=== PATIENT | male | born 1945 | race Caucasian/White ===

== ENCOUNTER → 2016-04-14 08:51 | Outpatient (CLI) | payer MEDICARE, OTHER ==
[2013-10-26 12:05] VITALS: BMI 26.6
[~2016-04-14 08:51] MED LIST: ASPIRIN325 MG PO; BENICAR HCT 40-1 TA1 PO; BUDEPRION XL300 MG; LIPITOR40 MG PO; LOPRESSOR25 MG PO; MULTI-DAY VITAM1 TAB PO; PLAVIX75 MG PO; POTASSIUM99 M1 PO; PREDNISONE50 MG PO; PRILOSEC20 MG PO; VITAMIN B COMPL1 TA1 PO
== END | disposition home or self-care (01) ==
LOC: D.CT 08:51
DX: M54.5 Low back pain (principal)

== ENCOUNTER → 2016-05-21 15:05 | Outpatient (CLI) | payer MEDICARE, OTHER ==
[2013-10-26 12:05] VITALS: BMI 26.6
== END | disposition home or self-care (01) ==
LOC: D.MRI 15:05
DX: M51.26 Other intervertebral disc displacement, lumbar region (principal); M80.88XA Other osteoporosis with current pathological fracture, vertebra(e), initial encounter for fracture

== ENCOUNTER → 2016-07-13 14:43 | Outpatient (CLI) | payer MEDICARE, OTHER ==
[2013-10-26 12:05] VITALS: BMI 26.6
== END | disposition home or self-care (01) ==
LOC: D.MRI 14:43
DX: M54.12 Radiculopathy, cervical region (principal)

== ENCOUNTER → 2016-08-05 14:11 | Outpatient (CLI) | payer MEDICARE, OTHER ==
[2013-10-26 12:05] VITALS: BMI 26.6
== END | disposition home or self-care (01) ==
LOC: D.US 14:11
DX: I70.212 Atherosclerosis of native arteries of extremities with intermittent claudication, left leg (principal)

== ENCOUNTER 2016-08-18 06:53 | Outpatient (CLI) | payer MEDICARE, OTHER ==
[~2016-08-18] VITALS: Ht 188 cm; Wt 79.5 kg
--- NOTE | ~2016-08-18 | HEMODYNAMI ---
PATIENT:RIKKI DAÍZ MEDICAL RECORD: [id number] : 43 LOCATION:[facility] ADMISSION DATE: 08/18/16 Generatedon:08/18/201611:54 Patient name: RIKKI DÍAZ Patient #: [id number] SSN: : 1945 Date of study: 08/18/2016 Page: Of Hemodynamic Procedure Report Patient Data Patient Demographics Procedure consent was obtained First Name: RIKKI Gender: Male Last Name: ARJUN : 1945 Middle Initial: ETHEL Age: 70 year(s) Patient #: [id number] Race: Unknown Additional ID: [id number] Contact details [address]: [address] [place] [address] State: [place] City: [place] Zip code: [address] Admission Admission Data Admission Date: 08/18/2016 Admission Time: 6:53 Procedure Procedure Types Cath Procedure Peripheral Cath Diagnostic Procedure Miscellaneous Procedure Description Procedure Date Procedure Date: 08/18/2016 Procedure Start Time: 10:25 Procedure Staff Name Function Gregory Kelly MD Performing Physician Maggie Wylie RT Scrub Lesly Serrato RN Nurse Seth Salcedo RT Monitor Procedure Data Cath Procedure Fluoroscopy Diagnostic fluoroscopy Total fluoroscopy Time: time: 17.9 min 17.9 min Diagnostic fluoroscopy Total fluoroscopy dose: 250 dose: 250 mGy mGy Contrast Material Contrast Material Type Amount (ml) Isovue 300 51 Entry Location Entry Primary Successful Side Size Upsize 1 Upsize Entry Closure Myesr ccessful Closure Location (Fr) (Fr) 2 (Fr) Remarks Device Remarks Femoral Right 5 Fr 6 Fr Mynx artery Mid-Length Correction Officer 6Fr/7Fr Diagnostic catheters Device Type Used For End Catheter Placement Diagnostic 5Fr IMT Catheter Procedure Medications Medication Administration Route Dosage Oxygen NC 3 l/min Lidocaine 1% added to field 20 Heparin Flush Bag 3 bags (1000units/500ml NS) Fentanyl I.V. 50 mcg Versed I.V. 1 mg Heparin Bolus I.V. 4000 units Nitroglycerin IC/IA I.A. 300 mcg Fentanyl I.V. 50 mcg Versed I.V. 1 mg Hemodynamics Rest Heart Rate: 252 (bpm) Snapshots Pre Cath Intra NCS Post Cath Vital Signs Time Heart Resp SPO2 NIBP (mmHg) Rhythm Pain Sedation Rate (ipm) (%) Status Level (bpm) 10:15:00 74 11 160/83(128) NSR 0 (11) 10(A) , No pain 10:19:16 61 13 99 148/89(125) NSR 0 (11) 10(A) , No pain 10:23:32 51 17 100 152/79(119) NSR 0 (11) 10(A) , No pain 10:27:48 71 16 99 151/87(112) NSR 0 (11) 10(A) , No pain 10:32:00 77 17 99 150/93(111) NSR 0 (11) 10(A) , No pain 10:36:16 59 14 98 151/86(123) NSR 0 (11) 10(A) , No pain 10:40:32 51 12 99 146/84(118) NSR 0 (11) 10(A) , No pain 10:44:48 58 19 96 137/77(112) NSR 0 (11) 10(A) , No pain 10:49:00 57 20 96 135/77(102) NSR 0 (11) 10(A) , No pain 10:53:12 60 16 97 141/77(110) NSR 0 (11) 10(A) , No pain 10:57:26 58 14 98 131/80(111) NSR 0 (11) 10(A) , No pain 11:01:38 66 19 96 143/76(106) NSR 0 (11) 10(A) , No pain 11:05:54 58 12 96 130/77(99) NSR 0 (11) 10(A) , No pain 11:10:06 63 13 96 121/72(92) NSR 0 (11) 10(A) , No pain 11:14:14 63 16 96 130/76(115) NSR 0 (11) 10(A) , No pain 11:18:23 60 15 96 133/78(98) NSR 0 (11) 10(A) , No pain 11:22:33 60 14 98 145/80(108) NSR 0 (11) 10(A) , No pain 11:26:48 71 15 98 140/80(106) NSR 0 (11) 10(A) , No pain 11:30:57 68 12 98 155/86(115) NSR 0 (11) 10(A) , No pain 11:35:15 55 15 100 157/83(112) NSR 0 (11) 10(A) , No pain 11:39:33 60 12 99 157/84(130) NSR 0 (11) 10(A) , No pain 11:43:51 59 17 100 154/81(113) NSR 0 (11) 10(A) , No pain 11:48:10 64 15 100 165/82(128) NSR 0 (11) 10(A) , No pain 11:52:28 30 19 100 162/91(144) NSR 0 (11) 10(A) , No pain Medications Time Medication Route Dose Verified Delivered Reason Notes Effectiveness by by 10:22:54 Oxygen NC 3 Lesly Lesly Per protocol l/min Ama Serrato RN RN 10:23:11 Lidocaine 1% added 20ml Lesly Lesly for local to vial Ama Serrato anesthetic field RN RN 10:23:41 Heparin Flush 3 Lesly Lesly used for Bag bags Ama Serrato procedure (1000units/500ml RN RN NS) 10:35:27 Fentanyl I.V. 50 Lesly Lesly for sedation mcg Ama Serrato RN RN 10:35:44 Versed I.V. 1 mg Lesly Lesly for sedation Ama Serrato RN RN 10:45:37 Heparin Bolus I.V. 4000 Lesly Lesly for units Ama Serrato anticoagulation RN RN 10:57:57 Nitroglycerin I.A. 300 Lesly Gregory for IC/IA mcg Ama liang RN, MD 11:00:07 Fentanyl I.V. 50 Lesly Gregory for sedation mcg Ama Kelly RN, MD 11:00:25 Versed I.V. 1 mg Lesly Gregory for sedation Ama Kelly RN, MD Procedure Log Time Note 9:52:39 Seth Salcedo RT (R) (CV) sent for patient. Start room use. 9:52:46 Time tracking: Regular hours 9:52:50 Plan of Care:Hemodynamics will remain stable., Cardiac rhythm will remain stable., Comfort level will be maintained., Respiratory function will remain adequate., Patient/ family verbilizes understanding of procedure., Procedure tolerated without complication., Recovers from procedure without complications.. 9:52:57 Patient received from Outpatients to IR Alert and oriented. Tansferred to table in Supine position. 9:52:59 Correct patient and procedure confirmed by team. 9:53:01 Signed procedure consent form obtained from patient. 9:53:03 ECG and BP/O2 sat monitors applied to patient. 9:53:04 Full Disclosure recording started 9:53:06 - 9:53:08 H&P Date Dictated: 08/18/2016 Within 30 days and on chart.. 9:53:09 Pre-procedure instructions explained to patient. 9:53:09 Pre-op teaching completed and patient verbalized understanding. 9:53:11 Family unavailable. 9:53:13 Patient NPO since Midnight. 9:53:20 Is patient on blood thinner?No 9:53:22 Patient diabetic? No. 9:53:25 - 9:53:25 ----Pre-sedation anethsthesia assessment.---- 9:53:28 Previous problem with sedation/anesthesia? No ? 9:53:29 Snore? Yes 9:53:31 Sleep apnea? No 9:53:33 Deviated septum? No 9:53:33 Opens mouth fully? Yes 9:53:35 Sticks out tongue? Yes 9:53:38 Airway obstruction? No ? 9:53:40 Dentures? No ? 9:53:44 Use device set IR Diagnostic 9:53:46 Acist Syringe opened to sterile field. 9:53:46 Acist Hand Control opened to sterile field. 9:53:46 Acist Manifold opened to sterile field. 9:53:47 Bag Decanter opened to sterile field. 9:53:47 Sterile Angiographic Pack opened to sterile field. 10:00:54 Pre procedure: right dorsailis pedis pulse Doppler 10:00:56 Pre procedure: left dorsailis pedis pulse Doppler 10:00:59 Pre procedure: right posterior tibial pulse Doppler 10:01:03 Pre procedure: left posterior tibial pulse Doppler 10:01:04 Sharps counted by scrub and verified by R.N. 10:01:04 Alarms reviewed by R. N. 10:01:08 Bilateral groins area was prepped with chlora-prep and draped in steril e fashion 10:01:21 Patient pain scale 0/10 no PAIN. 10:01:58 IV patent on arrival in left forearm with 0.9% NaCl at O. 10:13:49 Vital chart was started 10:13:50 Baseline sample Acquired. 10::53 Rhythm: sinus rhythm 10:22:54 Oxygen 3 l/min NC was administered by Lesly Serrato RN; Per protocol ; 10:23:11 Lidocaine 1% 20ml vial added to field was administered by Lesly Serrato RN; for local anesthetic; 10:23:41 Heparin Flush Bag (1000units/500ml NS) 3 bags was administered by Lesly Serrato RN; used for procedure; 10:24:56 Physician arrived 10::57 --------ALL STOP TIME OUT------ 10::58 Final Timeout: patient, procedure, and site verified with staff and physician. All members of the team are in agreement. 10:25:00 Bilateral groins site verified by team. 10:25:05 Physical assessment completed. ASA score P 2 - A patient with mild systemic disease as per Gregory Kelly MD. 10:25:09 Sedation plan: IV Moderate Sedation Versed, Fentanyl 10:25:17 Procedure started. 10:25:24 Local anesthetic to right femoral artery with Lidocaine 1% by Gregory Kelly MD.INITIAL ACCESS ONLY 10:26:18 TUBING, CONTRAST INJCTN HI PRES opened to sterile field. 10:26:18 Micropuncture VSI 4FR kit opened to sterile field. 10:26:19 Terumo 5Fr Globe Sheath opened to sterile field. 10:26:19 Cook BENTSON 145cm guide wire opened to sterile field. 10:26:25 A Diagnostic 5Fr IMT Catheter was advanced over the wire and used for . 10:26:26 Cook HILL 260 guide wire opened to sterile field. 10:26:[address]NER 260 .035 glide wire opened to sterile field. 10:26:48 A 5 Fr sheath was inserted into the Right Femoral artery 10:35:27 Fentanyl 50 mcg I.V. was administered by Lesly Serrato RN; for sedation; 10:35:44 Versed 1 mg I.V. was administered by Lesly Serrato RN; for sedation; 10:42:53 Terumo 6Fr Globe Destination Sheath opened to sterile field. 10:43:33 Sheath upsized to a 6 Fr Mid-Length. 10:45:22 Flagler Sci Choice PT Extra Support J 300cm .014 gu opened to sterile field. 10:45:37 Heparin Bolus 4000 units I.V. was administered by Lesly Serrato RN; for anticoagulation; 10:45:58 CXI SUPPORT .035 135 CM STR catheter opened to sterile field. 10:47:04 BasixTOUCH Inflation Syringe opened to sterile field. 10:57:57 Nitroglycerin IC/IA 300 mcg I.A. was administered by Gregory Kelly MD; for vasodilation; 11:00:07 Fentanyl 50 mcg I.V. was administered by Gregory Kelly MD; for sedation; 11:00:25 Versed 1 mg I.V. was administered by Gregory Kelly MD; for sedation; 11:17:10 Terumo 6Fr Globe Sheath opened to sterile field. 11:25:16 Inflation number: 1 A IN.PACT Admiral 5 x 150 balloon was prepped and advanced across the Distal Superficial Femoral, Left, then inflated to 0 JILLIAN for 2:45 (min:sec). 11:31:37 Inflation number: 2 A IN.PACT Admiral 6.0 x 120 x 135 DCB Balloon was prepped and advanced across the Distal Superficial Femoral, Left, then inflated to 0 JILLIAN for 4:02 (min:sec). 11:36:32 MYNX LAST MARKER 6FR/7FR opened to sterile field. 11:36:49 Sheath removed intact; hemostasis achieved with Mynx Correction Officer 6Fr/7Fr to th e Right Femoral artery. 11:36:58 Procedure ended.(Physican Out) 11:37:33 Fluoroscopy time 17.90 minutes. 11:37:49 Flurop Dose total: 250 11:37:49 Fluoroscopy dose: 250 mGy 11:37:54 Contrast amount:Isovue 300 51ml. 11:37:56 Sharps counted by scrub and verified by R.N. 11:37:59 Insertion/operative site no bleeding no hematoma. 11:38:04 Post-op/insertion site Right Femoral artery dressed using a 4 x 4 and Tegaderm. 11:38:11 Post right femoral artery:stable 11:38:15 Post Procedure Pulses reassessed and unchanged 11:38:18 Post procedure rhythm: unchanged. 11:41:54 Post procedure instruction explained to patient.Patient verbalizes understanding. 11:48:04 Procedure and supply charges have been captured, reviewed, submitted an d are correct. 11:53:06 Report given to Outpatients. 11:53:29 Patient transfered to Outpatients with Stretcher. 11:54:24 Vital chart was stopped Intervention Summary Intervention Notes Time ActionType Lesion and Equipment Action# Pressure Duration Attributes Used 11:25:16 Inflate Distal IN.PACT 1 0 02:45 balloon Superficial Admiral 5 Femoral, x 150 Left balloon 11:31:37 Inflate Distal IN.PACT 2 0 04:02 balloon Superficial Admiral Femoral, 6.0 x 120 Left x 135 DCB Balloon Device Usage Item Name Manufacture Quantity Catalog Number [facility] Lot# / Charge Number Stock Stock Serial# Code Acist Syringe Acist 1 [id number] [id number] 872818 487340 20 Medical [employer] Inc Acist Hand Acist 1 70858 753477 707141 987448 5 Control Medical Systems Inc Acist Acist 1 80634 520927 596286 404161 5 Manifold Medical Systems Inc Bag Decanter Microtek 1 2001S 768813 51938 412513 5 Medical Inc. Sterile Cardinal 1 [id number] 725659 008996 5 Angiographic Health Pack TUBING, Merit 1 [id number] 468164 565984 073164 5 CONTRAST Medical INJCTN HI PRES Micropuncture VSI VASCULAR 1 7266V 890848 443054 5 VSI 4FR kit SOLUTIONS Terumo 5Fr Terumo 1 [id number] 011397 169357 910267 40 Globe Sheath Cook BENTSON [facility] 1 [id number] 819244 819612 5 [id number] 145cm guide wire Diagnostic Flagler 1 [id number] 748109 456028 70592 5 5Fr IMT Scientific Catheter Cook [facility] 1 [id number] 177370 094307 5 [id number] 260 guide wire [facility] 1 [id number] 608412 718484 5 [id number] ROADRUNNER 260 .035 glide wire Terumo 6Fr Terumo 1 RSR01 213735 51211 178048 5 Globe Destination Sheath Flagler Sci Flagler 1 [id number] 435060 352459 505809 5 Choice PT Scientific Extra Support J 300cm .014 gu CXI SUPPORT [facility] 1 [id number] 854322 874005 5 [id number] .035 135 CM STR catheter [facility] 1 [id number] 141139 053534 864231 5 Inflation Medical Syringe Terumo 6Fr Terumo 1 [id number] 231476 805763 170367 40 Globe Sheath IN.PACT Medtronic 1 [id number] 852494 5548754 412376 5 [id number] Admiral 5 x 150 balloon IN.PACT Medtronic 1 [id number] 875475 362195 264012 5 [id number] Admiral 6.0 x 120 x 135 DCB Balloon MYNX LAST MARKER Access 1 [id number] 747809 055228 5 [id number] 6FR/7FR Closure Signature Audit D Hanis Stage Time Signature Unsigned Intra-Procedure 08/18/2016 Seth 11:54:21 AM Shuffield RT (R) (CV) Signatures Monitor : Seth Signature : Lisaield RT Date : Time : [id number] [place] [address]
[~2016-08-18 06:53] MED LIST changes: -ASPIRIN325 MG PO; +ASPIRIN81 MG PO
--- NOTE | 2016-08-18 07:18 | NUR ---
0710-PATIENT STATES ALLERGY TO SHELLFISH. DR CURRY NOTIFIED VIA LEXII PADGETT IN INTERVENTIONAL RADIOLOGY.
[2016-08-18 07:31] LABS: APTT 30.7 SECONDS (22.8-39.4); PROTIME 13.1 SECONDS (11.6-15.0)
[2016-08-18 07:32] LABS: ANION GAP 10.7 mmol/L (8-16); CALCIUM 10.1 mg/dL (8.5-10.1); CARBON DIOXIDE 29.6 mmol/L (21.0-32.0); CREATININE - SERUM 1.4 mg/dL (0.6-1.3); POTASSIUM - SERUM 4.3 mmol/L (3.5-5.1)
[2016-08-18 07:36] LABS: BASOPHILS 0.4 % (0-2); EOSINOPHILS 9.4 % (0-7); HEMATOCRIT 44.3 % (42.0-54.0); HEMOGLOBIN 15.4 g/dL (13.5-17.5); IMMATURE GRANULOCYTES 0.2 % (0-5); LYMPHOCYTES 34.5 % (15-50); MCHC 34.8 g/dL (31.0-37.0); MCV 103.5 fL (80.0-100.0); MEAN PLATELET VOLUME 9.9 fL (7.4-10.4); MONOCYTES 9.4 % (2-11); NEUTROPHILS 46.1 % (40-80); RBC 4.28 10x6/uL (4.20-6.10); RDW 13.6 % (11.5-14.5); WBC 5.2 10x3/uL (4.8-10.8)
[2016-08-18 07:38] LABS: PLATELET COUNT 182 10x3/uL (130-400)
[2016-08-18] MEDS ORDERED: BUPROPION XL300 MG PO (08:12)
[2016-08-18] MEDS ORDERED: NORCO 7.5/325 T1 TA1 PO (08:13)
[2016-08-18 08:21] VITALS: Ht 188 cm; Wt 79.5 kg
--- NOTE | 2016-08-18 18:35 | NUR ---
1210--ALL VITAL SIGNS CHARTED ON POST PROCEDURE VITAL SIGN SHEET ON CHART. BROCK TROY
--- NOTE | 2016-08-18 18:40 | NUR ---
1600--IV DC'D, PT UP TO DRESS AT THIS TIME. BROCK TROY 1620--DISCHARGE INSTRUCTIONS GIVEN, PT VERBALIZES UNDERSTANDING. PT OFF UNIT VIA WC. BROCK TROY
== END 2016-08-18 16:20 | disposition home or self-care (01) ==
LOC: D.OPS 06:53 → D.RAD 10:00 → D.OPS 10:00
PROVIDERS: Radiology Diagnostic Radiology
DX: I70.212 Atherosclerosis of native arteries of extremities with intermittent claudication, left leg (principal)